=== PATIENT | male | born 1960 | race African-American/Black ===

== ENCOUNTER 2018-10-02 17:09 | Observation (INO) ==
[2018-10-02] MEDS ORDERED: ZOFRAN IV PRN (17:12)
[2018-10-02] MEDS ORDERED: TYLENOL PO PRN (17:12)
[2018-10-02] MEDS ORDERED: SALINE LOCK IV FLUID XX ONE (17:12)
--- NOTE | 2018-10-02 17:47 | Diag Imaging Result Doc PS360 ---
EXAM: CHEST-2 VIEWS 10/02/2018 HISTORY: Chest Pain TECHNIQUE: PA and lateral chest COMMENT: There are calcified nodes in the right paratracheal and hilar regions. There is no evidence of acute cardiac or pulmonary disease. IMPRESSION: No evidence of acute disease. Electronically signed by Carlos Warner 10/02/2018 5:44 PM
[2018-10-02 18:36] LABS: HEMATOCRIT 47.5 % (42.0-52.0); HEMOGLOBIN 16.9 g/dL (14.0-18.0); RBC 5.65 XMIL (4.7-6.1); WBC 4.85 X1000 (4.8-10.8)
[2018-10-02 18:37] LABS: MCH 29.9 PG (27-31); MCHC 35.6 g/dL (33-37); MCV 84.1 FL (81-99); MPV 11.7 FL (7.4-10.4); RDW 12.9 % (11.5-14.5)
[2018-10-02 18:38] LABS: INR 0.84; PROTIME 12.3 Seconds (11.0-16.0)
[2018-10-02 19:03] LABS: AGAP 13; BUN 11 mg/dL (8-22); CHLORIDE 101 mmol/L (98-107); COSMO 281; CREATININE 0.9 mg/dL (0.7-1.2); ESTIMATED GFR > 60; GLUCOSE 97 mg/dL (70-104); POTASSIUM 4.2 mmol/L (3.5-5.1); SODIUM 141 mmol/L (136-145); TCO2 27 mmol/L (25-35)
[2018-10-02 19:10] LABS: PTT 29.1 Seconds (22.3-41.8)
[2018-10-02 19:21] LABS: CK INDEX 0.4 (0.0-2.5); CK-MB 3.99 ng/mL (0.0-5.0)
[2018-10-02] MEDS: LOVENOX SUBQ SCH (21:09)
[2018-10-02] MEDS: NITROGLYCERIN TOP SCH (21:09)
[2018-10-03 02:29] LABS: CK INDEX 0.5 (0.0-2.5); CK-MB 2.7 ng/mL (0.0-5.0)
[2018-10-03] MEDS: NITROGLYCERIN TOP SCH (03:55)
[2018-10-03] MEDS ORDERED: PRILOSEC PO SCH (07:00)
[2018-10-03 07:37] LABS: CHOLESTEROL 148 mg/dL (0-200); HDL 58 mg/dL (35-55); LDL 80 mg/dL; TRIGLYCERIDES 49 mg/dL (39-160); VLDL 10 mg/dL
--- NOTE | 2018-10-03 08:06 | EKG Report ---
Test Performed on : 10/03/2018 06:36:30 AM Test Reason : unstable angina Blood Pressure : / mmHG Vent. Rate : 057 BPM Atrial Rate : 057 BPM P-R Int : 180 ms QRS Dur : 078 ms QT Int : 442 ms P-R-T Axes : 045 032 034 degrees QTc Int : 430 ms Sinus bradycardia. Otherwise normal ECG No previous ECGs available Confirmed by Tre MARCOS, Fermin Singh ([id number]) on 10/03/2018 10:23:46 AM
[2018-10-03] MEDS ORDERED: NITROGLYCERIN TOP SCH (09:45)
[2018-10-03 11:32] VITALS: BP 112/76
[2018-10-03] MEDS: LOVENOX SUBQ SCH ×2 (11:41→11:45)
[2018-10-03] MEDS: ASPIRIN PO SCH ×2 (11:41→11:42)
--- NOTE | 2018-10-03 14:07 | Diag Imaging Result Document ---
PROCEDURE NAME: MYOCARDIAL PERF SCAN, STR/REST - 10/03/2018 SUMMARY: The patient was administered 13.1 mCi of technetium-99m sestamibi, after which resting cardiac images were obtained. Patient was subsequently exercised on treadmill according to a Ulsies protocol and exercised for a total of 10 minutes and 30 seconds, achieving a maximum workload of stage IV and 12.5 METS. With exercise, the heart increased from 66 beats per minute to 148 beats per minute representing 92% of maximal age-predicted heart rate. The blood pressure increased to 110/72 to 140/88. With exercise, the patient denied chest discomfort. At peak exercise, the patient was administered 36.0 mCi of technetium-99m sestamibi, after which gated stress cardiac images were obtained. Baseline ECG demonstrated sinus rhythm and was within normal limits. With exercise, there were no diagnostic ST-segment changes. SPECT images were reconstructed in the short, horizontal long, and vertical axis. Review of these images demonstrated homogeneous uptake of radiopharmaceutical in both stress and resting images. Gated images demonstrate a calculated left ventricular ejection fraction of 56% with symmetrical wall motion/thickening. CONCLUSIONS: 1. Good aerobic capacity. Target heart rate achieved. 2. Clinically negative for chest pain. 3. Electrocardiographically negative for exercise-induced myocardial ischemia. 4. Normal exercise sestamibi images. cc: MD Em Do MD
[2018-10-03 14:18] LABS: CK INDEX 0.5 (0.0-2.5); CK-MB 2.51 ng/mL (0.0-5.0)
[2018-10-03] MEDS ORDERED: MOTRIN PO SCH (17:00)
--- NOTE | 2018-10-03 22:42 | DISCHARGE SUMMARY ---
ADMISSION DATE: 10/02/2018 DISCHARGE DATE: 10/03/2018 DISCHARGE DIAGNOSIS: Noncardiac chest pain secondary to costochondritis. DISCHARGE INSTRUCTIONS: 1. Return to clinic in 2 weeks to see me, Dr. Lul Souza. 2. Activity as tolerated. 3. Healthy heart diet. 4. Medications: Aspirin 325 mg daily, Motrin 800 mg t.i.d. for 10 days. DISCHARGE PHYSICAL EXAMINATION: General: This is a well-developed, well-nourished, 58-year-old, gentleman in no apparent distress. Vital signs: Temperature 98.2 degrees, pulse 66, respirations 16, BP 112/76. Neck: Supple. No masses, JVD or bruits. Cardiovascular: Regular rate and rhythm. Lungs: Clear. Abdomen: Soft, nontender with active bowel sounds. Chest Wall: There is reproducible chest wall tenderness over the sternum. REASON FOR ADMISSION AND HOSPITAL COURSE: Mr. Jero Thorpe was admitted to [facility] as an outpatient with observation services for the evaluation of unstable angina. Over the past several weeks prior to admission, he had been having intermittent episodes of chest pressure and chest tightness with radiation to his neck and arm. He was initially treated with aspirin, topical nitrates, subcutaneous Lovenox, and he ruled out for myocardial ischemia by serial enzymes. Serial EKGs did not demonstrate any acute changes. His initial EKG in the office demonstrated nonspecific ST-segment changes. During the night, he had intermittent episodes of chest discomfort. On examination this morning, he had reproducible chest wall pain and discomfort over the breast bone to deep palpation. He underwent a Myoview GXT with rest stress protocol, and no perfusion abnormalities were noted. We will continue aspirin 325 mg daily, and I will treat him with a 10-day course of Motrin 800 mg t.i.d. Lipids demonstrated a total cholesterol 148, triglycerides 49, HDL 58 and an LDL of 80. We did not feel that there was any indication for long- term statin use at this time. Having reached maximum hospital benefit, the patient was discharged in stable condition. cc: Em Souza MD
== END 2018-10-03 14:27 | disposition home or self-care (01) ==
LOC: DIRADM → 4N 17:09
PROVIDERS: ADMIT Internal Medicine; ATTEND Internal Medicine
CPT/HCPCS: 71020; 71046; 78452; 80048; 80061; 82550; 82553; 84484; 85027; 85610; 85730; 93005; 93010; 93017; A9270; A9500; J1650